=== PATIENT | male | born 1985 | race Caucasian/White ===

== ENCOUNTER 2021-06-04 03:39 | Emergency (ER) | payer SELFPAY ==
[~2021-06-04] VITALS: Ht 182.9 cm; Wt 79.8 kg
--- NOTE | 2021-06-04 03:55 | NUR ---
PT PROVIDED WITH WARM BLANKETS FOR COMFORT.
[2021-06-04] MEDS ORDERED: NITROGLYCERIN PACKET 1 GM PACKET TD ONE (04:00)
[2021-06-04] MEDS ORDERED: NITROGLYCERIN 0.4 MG/TAB BOTTLE SL ONE (04:00)
[2021-06-04] MEDS ORDERED: METOPROLOL TARTRATE INJ 5 MG/5 ML AMPUL IVP ONE (04:00)
[2021-06-04] MEDS ORDERED: ONDANSETRON HCL/PF 4 MG/2 ML VIAL IVP ONE (04:00)
--- NOTE | 2021-06-04 04:00 | NUR ---
pt bib from home c/o chest pain non radiating, 06/11. sob, tingling arm. pt has not slept in over 26 hours, denies drugs, admits to smoking whole pack of cigarettes which pt verbalizes he never does. pt on monitor, notified
[2021-06-04] MEDS ORDERED: ONDANSETRON HCL/PF 4 MG/2 ML VIAL ONE (04:01)
[2021-06-04] MEDS ORDERED: METOPROLOL TARTRATE INJ 5 MG/5 ML AMPUL ONE (04:01)
[2021-06-04] MEDS ORDERED: NITROGLYCERIN PACKET 1 GM PACKET ONE (04:02)
[2021-06-04] MEDS ORDERED: NITROGLYCERIN 0.4 MG/TAB BOTTLE ONE (04:02)
[2021-06-04] MEDS ORDERED: HYDROMORPHONE 1 MG/1 ML DISP.SYRIN ONE (04:23)
[2021-06-04] MEDS ORDERED: ACETAMINOPHEN ES 500 MG TABLET ONE (04:24)
[2021-06-04 04:29] LABS: BASOPHILS % (AUTO) 0.5 % (0.0-2.0); EOSINOPHILS % (AUTO) 1.5 % (0.0-6.0); HEMATOCRIT 44 % (39-51); HEMOGLOBIN 14.9 g/dL (13.5-17.5); LYMPHOCYTES % (AUTO) 28.1 % (20.0-44.0); MEAN CORPUSCULAR HGB CONC 34 g/dl (31.0-36.0); MEAN CORPUSCULAR VOLUME 90 fL (80-96); MONOCYTES # (AUTO) 0.4 K/uL (0.1-1.30); MONOCYTES % (AUTO) 6.2 % (2.0-12.0); NEUTROPHILS # (AUTO) 4.6 K/uL (1.8-8.9); NEUTROPHILS % (AUTO) 63.7 % (43.0-81.0); PLATELET COUNT (AUTO) 225 K/uL (150-450); RED BLOOD CELL COUNT(AUTO) 4.84 MIL/uL (4.5-6.0); WHITE BLOOD COUNT (AUTO) 7.2 K/uL (4.3-11.0)
[2021-06-04] MEDS ORDERED: HYDROMORPHONE 1 MG/1 ML DISP.SYRIN IV ONE (04:30)
[2021-06-04] MEDS ORDERED: ACETAMINOPHEN ES 500 MG TABLET PO ONE (04:30)
--- NOTE | 2021-06-04 04:30 | NUR ---
URINE SPECIMEN COLLECTED AND SENT TO LAB.
[2021-06-04 04:36] LABS: D-DIMER 0.19 mg/L(FEU (0.17-0.50)
[2021-06-04 04:37] LABS: CALCIUM, SERUM 8.5 mg/dL (8.5-10.1); CARBON DIOXIDE 26 mmol/L (21-32); CHLORIDE 106 mmol/L (98-107); CREATININE 0.9 mg/dL (0.6-1.3); GLUCOSE 97 mg/dL (74-106); POTASSIUM 3.8 mmol/L (3.5-5.1); SODIUM SERUM 141 mmol/L (136-145); UREA NITROGEN, BLOOD 11 mg/dL (7-18)
[2021-06-04 04:49] LABS: ALANINE AMINOTRANSFERASE 33 U/L (12-78); ALKALINE PHOSPHATASE 86 U/L (46-116); ASPARTATE AMINOTRANSFERASE 17 U/L (15-37); BILIRUBIN,DIRECT 0.2 mg/dL (0.0-0.2); BILIRUBIN,TOTAL 0.6 mg/dL (0.2-1.0); TOTAL PROTEIN, SERUM 7.5 g/dL (6.4-8.2)
--- NOTE | 2021-06-04 05:00 | NUR ---
pt verbalizes anxiety when trying to fall asleep. md notified
[2021-06-04] MEDS ORDERED: LORAZEPAM INJ 2 MG/ML VIAL IV ONE (05:30)
[2021-06-04] MEDS ORDERED: LORAZEPAM INJ 2 MG/ML VIAL ONE (05:36)
[2021-06-04 05:46] LABS: BILIRUBIN,URINE NEGATIVE (NEGATIVE); COLOR,URINE YELLOW (YELLOW); LEUKOCYTE ESTERASE ,URINE NEGATIVE (NEGATIVE); NITRITE, URINE NEGATIVE (NEGATIVE); PH,URINE 6.5 (5.0-8.0); PROTEIN,URINE NEGATIVE (NEGATIVE); UGLUCOSE NEGATIVE (NEGATIVE); UROBILINOGEN,URINE 0.2 EU/dL (0.2)
[2021-06-04 05:54] LABS: BACTERIA,URINE None seen /HPF (None Seen); RBC,URINE 0-2 /HPF (0-2); SQUAMOUS EPITHELIAL CELL,UR Few /HPF (None Seen); WBC,URINE 0-2 /HPF (0-3)
--- NOTE | 2021-06-04 06:00 | NUR ---
pt medicated, vss. resting calmly, at this time
--- NOTE | 2021-06-04 08:01 | NUR ---
THE PATIENT SLEEPING IN ER BED #3. EASILY RESPONSIVE TO VERBAL STIMULI. BREATHING EVEN AND UNLABORED. ATTACHED TO THE MONITOR. WILL CONTINUE TO MONITOR THE PATIENT.
[2021-06-04 09:05] VITALS: BP 106/54
--- NOTE | 2021-06-04 09:06 | NUR ---
Patient discharged to home in stable condition. Written and verbal after care instructions given. Patient verbalizes understanding of instruction. Ambulatory NAD. Stable
== END 2021-06-04 09:06 | disposition home or self-care (01) ==
LOC: ER 03:42
DX: R07.89 Other chest pain (principal); F17.210 Nicotine dependence, cigarettes, uncomplicated; Z98.890 Other specified postprocedural states
CPT/HCPCS: 36415; 71045; 80048; 80076; 80307; 81001; 83880; 84484 ×2; 85025; 85378; 85730; 93005; 96374; 96375; 99285; J1170; J2060; J2405; J3490